=== PATIENT | female | born 1995 | race Caucasian/White ===

== ENCOUNTER 2022-09-15 19:54 | Emergency (ER) | payer BC, OTHER ==
[~2022-09-15] VITALS: Ht 160 cm; Wt 77.1 kg
--- NOTE | 2022-09-15 20:34 | NUR ---
CALLED TO TRIAGE NO ANSWER
--- NOTE | 2022-09-15 21:10 | NUR ---
BIBS C/O L LOWER EXTREMITY PAIN 10/05. TWISTED HER ANKLE WHILE IN HEELS. AXO4 VERBAL. RESPIRATIONS EVEN AND UNLABORED
[2022-09-15] MEDS ORDERED: HYDROCODONE/APAP 5/325MG TABLET ONE (21:29)
[2022-09-15] MEDS ORDERED: HYDROCODONE/APAP 5/325MG TABLET PO ONE (21:30)
--- NOTE | 2022-09-15 21:42 | NUR ---
X-RAY AT BEDSIDE
--- NOTE | 2022-09-15 22:00 | NUR ---
PT MOVED TO BED 12
--- NOTE | 2022-09-15 22:17 | NUR ---
MAGGIE MARTINEZ ON THE PHONE WITH DR WISE FOR ORTHO CONSULT
[2022-09-15] MEDS ORDERED: PROPOFOL 20 ML IV ONE (22:59)
[2022-09-15] MEDS: PROPOFOL 200 MG/20 ML VIAL IV ONE ×2 (23:03→23:37)
--- NOTE | 2022-09-15 23:03 | NUR ---
90 MG OF PROPOFOL GIVEN PER MD'S ORDER. DR OVALLE, MAGGIE MARTINEZ, EMT AND RT AT THE BED SIDE.
--- NOTE | 2022-09-15 23:04 | NUR ---
30 MG OF PROPOFOL GIVEN PER MD'S ORDER. DR OVALLE, MAGGIE MARTINEZ, EMT AND RT AT THE BED SIDE.
--- NOTE | 2022-09-15 23:05 | NUR ---
Note farrukh in EDM - 09/15/22 at 2345 by ALVINA 90 MG OF PROPOFOL GIVEN PER MD'S ORDER. DR OVALLE, MAGGIE MARTINEZ, EMT AND RT AT THE BED SIDE.
--- NOTE | 2022-09-15 23:05 | NUR ---
30 MG OF PROPOFOL GIVEN PER MD'S ORDER. DR OVALLE, MAGGIE MARTINEZ, EMT AND RT AT THE BED SIDE.
[2022-09-15] MEDS ORDERED: IV NS 0.9% 1,000 ML BAG IV ONE (23:30)
[2022-09-15] MEDS ORDERED: OXYC-128 PO (23:38)
--- NOTE | 2022-09-16 00:15 | NUR ---
IV NS 0.9% 1000mL IVPB END TIME 14
--- NOTE | 2022-09-16 00:22 | NUR ---
Patient discharged to home in stable condition. Written and verbal after care instructions given. Patient verbalizes understanding of instruction.
[2022-09-16 00:23] VITALS: BP 138/90
--- NOTE | 2022-09-16 00:38 | NUR ---
Radha chadwick in ED - 09/24/22 at 0039 by TREMAYNE IV NS 0.9% 1000mL IVPB END TIME 37
== END 2022-09-16 00:25 | disposition home or self-care (01) ==
LOC: ER 19:56
DX: S82.852A Displaced trimalleolar fracture of left lower leg, initial encounter for closed fracture (principal); S93.05XA Dislocation of left ankle joint, initial encounter; F12.90 Cannabis use, unspecified, uncomplicated; Z79.899 Other long term (current) drug therapy; W01.0XXA Fall on same level from slipping, tripping and stumbling without subsequent striking against object, initial encounter; Y93.89 Activity, other specified; Y92.89 Other specified places as the place of occurrence of the external cause; Y99.8 Other external cause status
CPT/HCPCS: 27818; 99285; 96360; 99152; 73610 ×2; 84703; J2704; J7030; G0500